=== PATIENT | female | born 1960 | race Caucasian/White ===

== ENCOUNTER 2020-11-23 02:20 | Outpatient (CLI) | payer OTHER, SELFPAY ==
--- NOTE | 2020-11-23 | DI.CT_ITS ---
Exam(s) CT CHEST W EXAM: CT CHEST W CLINICAL HISTORY: CT SIM SHOWED NODULE DEIRDRE,R91.1,RT BREAST CA,C50.911 TECHNIQUE: Imaging Protocol: Axial computed tomography images with coronal and sagittal reformatted images were created and reviewed CONTRAST MATERIAL: Intravenous: Omnipaque 350 Contrast volume:70 mL. COMPARISON: CT CT RAD ONC CHEST INTER from 08/17/2020 FINDINGS: Tracheobronchial tree: Patent where visualized. Pulmonary parenchyma: There is a peripheral infiltrate in the right upper and right lower lobes. Thi s was not present on the prior examination. Subpleural cysts have also developed in this area. Ther e is some scarring that has developed in the right upper and right middle lobes. These findings may be sequela of radiation therapy. Pneumonia cannot be excluded. No architectural distortion. There i s a stable 6 mm nodule in the left upper lobe. No other pulmonary nodules are identified. Mediastinum and Ritu: No dominant adenopathy or fluid collection. Stable mediastinal lymph nodes. Pleura: No effusion or pneumothorax. Heart: The heart is not dilated. Coronary artery calcifications. No pericardial effusion. Aorta: Thoracic aorta non-dilated. Atherosclerosis. Upper abdomen: There is a stable hypodensity in the right lobe of the liver. It is too small for fu rther characterization but may reflect a small cyst. Lymph nodes: Within normal limits. Bones: No lytic or sclerotic lesions. Soft tissues: There has been interval decrease in size of the fluid density lesion in the right breas t. It currently measures 4.0 x 3.9 cm. This compares to 4.9 x 5.4 cm. IMPRESSION: 1. Stable left upper lobe pulmonary nodule. 2. No new pulmonary nodules. 3. Interval development of peripheral right upper and middle lobe infiltrates subpleural cysts and pa renchymal scarring. This may be sequelae of radiation therapy. Pneumonia cannot be excluded. 4. Will decrease in size of fluid collection in the right breast. This may represent the decreasing breast carcinoma, resolving hematoma or seroma. Please correlate with patient's surgical history. RADIATION DOSE DELIVERED: 534.06mGy.cm Total DLP DATA REPOSITORY: All CT scans at this facility are submitted to the National Radiology Data Registry (NRDR) Dose Index Registry (DIR) with the [employer] ([employer]). RADIATION OPTIMIZATION: All CT scans at this facility use at least one of these dose optimization te chniques: automated exposure control; mA and/or kV adjustment per patient size (includes targeted exa ms where dose is matched to clinical indication); or iterative reconstruction.
[2020-11-23 14:34] LABS: CREATININE 0.7 mg/dL (0.55-1.02)
[2020-11-23] MEDS: Omnipaque 350 MG/ML 100 ML BTL IJ (15:06)
[2020-11-23] MEDS: Normal Saline - Diluent 50 ML VIAL IV (15:06)
== END 2020-11-23 02:40 ==
PROVIDERS: Visit Provider Radiology Radiation Oncology
DX: R91.1 Solitary pulmonary nodule (principal); C50.911 Malignant neoplasm of unspecified site of right female breast; R93.89 Abnormal findings on diagnostic imaging of other specified body structures
CPT/HCPCS: 71260; 82565; J3490